=== PATIENT | male | born 1960 | race Caucasian/White ===

== ENCOUNTER 2017-07-19 11:30 | Emergency (ER) | payer BC ==
[~2017-07-19] VITALS: Ht 170.2 cm; Wt 77.2 kg
[~2017-07-19 11:30] MED LIST: EPP3/2 IM
[2017-07-19 11:45] VITALS: TEMP 37.1; Ht 170.2 cm; Wt 77.2 kg
[2017-07-19] MEDS ORDERED: ACETAMINOPHEN 325 MG TAB PO STA (12:16)
[2017-07-19] MEDS ORDERED: SODIUM CHLORIDE 0.9% 1000ML 1,000 ML IV STA (12:16)
[2017-07-19] MEDS ORDERED: ONDANSETRON INJ 2 MG/ML 2 ML VIAL IV STA (12:16)
--- NOTE | 2017-07-19 12:21 | EMERGENCY ROOM VISIT NOTE ---
History Report prepared by Sonja: Shikha Meneses Under the Supervision of: Dr. Renetta Perales M.D. First contact with patient: 11:58 Chief Complaint: GI ASSESSMENT Stated Complaint: PAIN IN STOMACH,FEVER,VOMIT,POS FLU A Nursing Triage Summary: Pt presents with who reports "unable to keep anything to down. Every time I stand up I get weak and get sick to my stomach. My stomach has been burning. I am throwing up." Pt dx on Sat with flu A. History of Present Illness The patient is a 57 year old male who presents to the Emergency Room for a GI assessment. The patient started to feel sick 3 days ago. He had a cough and intermittent fevers. He went to an urgent care and was diagnosed with influenza A. states that his cough has improved but now the patient is feeling nauseated. Pt has been vomiting some mucous. He has been able to drink fluids but is unable to keep any food down. He reports dizziness, generalized body aches, and burning in his stomach. His symptoms worsen with standing up and improve with rest. He reports pain in the left side of his abdomen. The patient rates his pain as a 5/10 in severity. Pt denies diarrhea. Source of History: patient, spouse/significant other Onset: 3 days ago Position: abdomen Symptom Intensity: 5/10 Quality: burning Modifying Factors (Worsening): other (standing) Modifying Factors (Relieving): rest Associated Symptoms: + fevers, + cough, + nausea, + vomiting, + abdominal pain, No diarrhea Note: Pt reports dizziness and generalized body aches. Review of Systems See HPI for pertinent positives & negatives. A total of 10 systems reviewed and were otherwise negative. Past Medical & Surgical Medical Problems: (1) Allergic reaction to bee sting (2) Allergic reaction to bee sting (3) Hypertension (4) Near syncope Family History Heart disease Hypertension Social History Smoking Status: Never Smoker Smokeless Tobacco Use: No Alcohol Use: occasionally Marital Status: Housing Status: lives with significant other Occupation Status: employed Current/Historical Medications Scheduled Hctz/Losartan (Hyzaar 12.5MG/100MG), 1 TAB PO DAILY Hydrochlorothiazide (Hctz), 37.5 MG PO DAILY Ondasetron Odt (Zofran Odt), 4 MG SL Q6H Scheduled PRN Benzonatate (Tessalon Perles), 100 MG PO TID PRN for Cough Allergies Coded Allergies: Latex (Unverified Allergy, Unknown, RASH, 07/19/17) Physical Exam Vital Signs Date Time Temp Pulse Resp B/P (MAP) Pulse Ox O2 Delivery O2 Flow Rate FiO2 07/19/17 14:32 61 16 125/83 96 Room Air 07/19/17 12:51 64 07/19/17 12:36 68 18 153/85 96 Room Air 07/19/17 11:45 37.1 80 18 136/102 96 Room Air Physical Exam Vital signs reviewed. General: Ill-appearing 57 year old male, in no significant distress. HEENT: No scleral icterus, PERRLA, neck supple. Atraumatic. Cardiovascular: Regular rate and rhythm, no extra sounds. Pulmonary: Clear to auscultation bilaterally, normal work of breathing. Abdomen: Soft, nontender, nondistended, positive bowel sounds. Musculoskeletal: Atraumatic, no peripheral edema. Neurologic: Patient awake alert and oriented x 3 Skin: Warm, dry, no rash Medical Decision & Procedures ER Provider Diagnostic Interpretation: Radiology results as stated below per my review and radiologist interpretation: ABDOMEN 2VIEW W/PA CHEST RTN CLINICAL HISTORY: 57 years-old Male presenting with L LQ abd pain, influenza, vomiting. TECHNIQUE: PA view of the chest and supine and upright views of the abdomen were obtained. COMPARISON: None. FINDINGS: Cardiomediastinal silhouette normal. Lungs and pleural spaces clear. Nonobstructive bowel gas pattern. Mild small bowel wall thickening suggested in the left mid abdomen. No pneumoperitoneum, pneumatosis, or portal venous gas. Allowing for bowel gas and stool, no calcifications to suggest nephrolithiasis. Osseous structures normal. IMPRESSION: 1. No acute cardiopulmonary disease. 2. Suggestion of mild small bowel wall thickening in the left mid abdomen which could suggest enteritis. 3. No bowel obstruction or free air. Electronically signed by: Gustavo Clayton M.D. 07/19/2017 1:17 PM Dictated Date/Time: 07/19/2017 1:16 PM ABD/PELVIS IV CONTRAST ONLY CLINICAL HISTORY: 57 years-old Male presenting with L abd pain, + flu, vomiting. TECHNIQUE: Multidetector CT of the abdomen and pelvis was performed after the administration of intravenous contrast. IV contrast: 93 mL of Optiray 320. A dose lowering technique was used consistent with the principles of ALARA (as low as reasonably achievable). COMPARISON: Plain radiograph performed earlier the same day. CT DOSE (mGy.cm): The estimated cumulative dose is 606.11 mGycm. FINDINGS: Medical Office Technician topogram: Unremarkable. Lung bases: Minimal basilar opacities, likely atelectasis. 4 mm solid peripheral/subpleural nodule in the medial basal right lower lobe (series 3 image 31). Additional smaller solid subpleural nodules noted on the left. Coronary artery calcification. Normal heart size. No pericardial or pleural effusion. Liver: Normal morphology. Somewhat irregular hypodense lesion in the right hepatic lobe (series 3 image 68), indeterminate and possibly hemangioma or hepatic cyst.. Patent hepatic vasculature. Biliary: No intrahepatic or extrahepatic biliary ductal dilatation. Normal gallbladder. Pancreas: Normal. Spleen: Normal. Adrenal glands: Normal. Kidneys and ureters: Normal. No hydronephrosis. Bladder: Circumferential bladder wall thickening likely indicating chronic outlet obstruction. Pelvic organs: Prostate enlargement likely secondary to benign prostatic hyperplasia. Bowel: Intramural fat deposition noted in the rectum, nonspecific but can be seen in the setting of chronic inflammation. No infiltration of the perirectal fat or evidence of rectal wall thickening. Remainder of the colon is normal. Appendix normal. No bowel obstruction. No significant small bowel wall thickening or perienteric fat stranding. Intramural deposition of fat is also noted in the distal ileum. Peritoneal cavity: No free fluid or intraperitoneal gas. Lymph nodes: Few prominent but subcentimeter lymph nodes in the portacaval region and harshad hepatis, likely reactive. No pathologically enlarged lymph nodes by CT size criteria. Vasculature: Aorta and IVC patent and normal in caliber. Abdominal wall: Normal. Musculoskeletal: Normal. IMPRESSION: 1. No acute intra-abdominal pathology. 2. Intrarenal fat deposition in the rectum and distal ileum. This is nonspecific and can be seen in the setting of chronic inflammation as well as chronic steroid use, obesity, or after chemotherapy. Correlate clinically. 3. Evidence of chronic bladder obstruction secondary to prostatomegaly. 4. Indeterminate liver lesion, suspected benign hemangioma. In the absence of hepatocellular risk factors or underlying malignancy, no further follow-up is warranted. 5. 4 mm solid pulmonary nodule at the right lower lobe. Additional smaller solid pulmonary nodules in the left lower lobe. Follow-up per Isabelle Society 2017 recommendations below. Please refer to below summary of Fleischner Society 2017 recommendations for follow-up of incidental CT nodules (H Melodie et al. Guidelines for management of incidental pulmonary nodules detected on CT images: From the Fleischner Society 2017. Radiology 2017; 284: 228-243.) SOLID NODULES Single nodule; size < 6 mm * Low risk patients: No routine follow-up * High risk patients: Optional CT at 12 months Single nodule; size 6-8 mm * Low risk patients: CT at 6-12 months, then consider CT at 18-24 months * High risk patients: CT at 6-12 months, then at 18-24 months Single nodule; size > 8 mm * Either low or high risk patients: Considered CT at 3 months, PET/CT, or tissue sampling Multiple nodules; size < 6 mm * Low risk patients: No routine follow up * High risk patients: Optional CT at 12 months Multiple nodules; size 6-8 mm * Low risk patients: CT at 3-6 months, then consider CT at 18-24 months * High risk patients: CT at 3-6 months, then at 18-24 months Multiple nodules; size > 8 mm * Low risk patients: CT at 3-6 months, then consider at 18-24 months * High risk patients: CT at 3-6 months, then at 18-24 months Note: These guidelines apply to incidental nodules. These guidelines do not apply to patients younger than 35 years, immunocompromised patients, or patients with cancer. * Low risk patients: Minimal or absent history of smoking and/or other known risk factors * High risk patients: History of smoking, exposure to other carcinogens, emphysema, fibrosis, upper lobe location, family history of lung cancer, etc. * If a nodule up to 8 mm is partly solid or is ground glass, further follow-up is required after 24 months to exclude possible slow growing adenocarcinoma. SUBSOLID NODULES Single ground-glass nodule * Nodule size < 6 mm: No routine follow-up * Nodule size > or = 6 mm: CT at 6-12 months to confirm persistence, then CT every 2 years until 5 years Single part-solid nodule * Nodule size < 6 mm: No routine follow-up * Nodules size > or = 6 mm: CT at 3-6 months to confirm persistence. If unchanged and solid component remains < 6 mm, annual CT should be performed for 5 years Multiple nodules * Nodule size < 6 mm: CT at 3-6 months. If stable, consider CT at 2 and 4 years. * Nodules size > or = 6 mm: CT at 3-6 months. Subsequent management based on the most suspicious nodule(s) Electronically signed by: Gustavo Clayton M.D. 07/19/2017 2:15 PM Dictated Date/Time: 07/19/2017 2:06 PM Laboratory Results 07/19/17 12:32 Red Blood Count 5.22, Mean Corpuscular Volume 87.5, Mean Corpuscular Hemoglobin 31.8, Mean Corpuscular Hemoglobin Concent 36.3, Mean Platelet Volume 9.9, Neutrophils (%) (Auto) 71.2, Lymphocytes (%) (Auto) 14.5, Monocytes (%) (Auto) 13.9, Eosinophils (%) (Auto) 0.0, Basophils (%) (Auto) 0.2, Neutrophils # (Auto ) 3.83, Lymphocytes # (Auto) 0.78, Monocytes # (Auto) 0.75, Eosinophils # (Auto ) 0.00, Basophils # (Auto) 0.01 07/19/17 12:32 Test 07/19/17 12:32 07/19/17 12:40 White Blood Count 5.38 K/uL (4.8-10.8) Red Blood Count 5.22 M/uL (4.7-6.1) Hemoglobin 16.6 g/dL (14.0-18.0) Hematocrit 45.7 % (42-52) Mean Corpuscular Volume 87.5 fL (80-100) Mean Corpuscular Hemoglobin 31.8 pg (25-34) Mean Corpuscular Hemoglobin Concent 36.3 g/dl (32-36) Platelet Count 258 K/uL (130-400) Mean Platelet Volume 9.9 fL (7.4-10.4) Neutrophils (%) (Auto) 71.2 % Lymphocytes (%) (Auto) 14.5 % Monocytes (%) (Auto) 13.9 % Eosinophils (%) (Auto) 0.0 % Basophils (%) (Auto) 0.2 % Neutrophils # (Auto) 3.83 K/uL (1.4-6.5) Lymphocytes # (Auto) 0.78 K/uL (1.2-3.4) Monocytes # (Auto) 0.75 K/uL (0.11-0.59) Eosinophils # (Auto) 0.00 K/uL (0-0.5) Basophils # (Auto) 0.01 K/uL (0-0.2) RDW Standard Deviation 40.0 fL (36.4-46.3) RDW Coefficient of Variation 12.5 % (11.5-14.5) Immature Granulocyte % (Auto) 0.2 % Immature Granulocyte # (Auto) 0.01 K/uL (0.00-0.02) Anion Gap 7.0 mmol/L (3-11) Est Creatinine Clear Calc Drug Dose 79.3 ml/min Estimated GFR () 101.9 Estimated GFR (Non- 87.9 BUN/Creatinine Ratio 24.5 (10-20) Calcium Level 9.1 mg/dl (8.5-10.1) Total Bilirubin 0.5 mg/dl (0.2-1) Direct Bilirubin 0.1 mg/dl (0-0.2) Aspartate Amino Transf (AST/SGOT) 30 U/L (15-37) Alanine Aminotransferase (ALT/SGPT) 40 U/L (12-78) Alkaline Phosphatase 68 U/L (45-117) Total Protein 8.3 gm/dl (6.4-8.2) Albumin 4.0 gm/dl (3.4-5.0) Lipase 159 U/L (73-393) Urine Color YELLOW Urine Appearance CLEAR (CLEAR) Urine pH 7.0 (4.5-7.5) Urine Specific [place] 1.028 (1.000-1.030) Urine Protein NEG (NEG) Urine Glucose (UA) NEG (NEG) Urine Ketones 1+ (NEG) Urine Occult Blood NEG (NEG) Urine Nitrite NEG (NEG) Urine Bilirubin NEG (NEG) Urine Urobilinogen NEG (NEG) Urine Leukocyte Esterase NEG (NEG) Laboratory results per my review. Medications Administered Medications (Trade) Dose Ordered Sig/Kyara Route Start Time Stop Time Status Last Admin Dose Admin Sodium Chloride 1,000 ml @ 999 mls/hr Q1H1M STAT IV 07/19/17 12:16 07/19/17 13:16 DC 07/19/17 12:35 999 MLS/HR Acetaminophen (Tylenol Tab) 650 mg NOW STAT PO 07/19/17 12:16 07/19/17 12:18 DC 07/19/17 12:35 650 MG Ondansetron HCl (Zofran Inj) 4 mg NOW STAT IV 07/19/17 12:16 07/19/17 12:18 DC 07/19/17 12:35 4 MG ECG Indication: abdominal pain Rate (beats per minute): 66 Rhythm: normal sinus Findings: no acute ischemic change, no ectopy Change: Patient's electrocardiogram interpreted by me. ED Course 1206: Past medical records reviewed. The patient was evaluated in room A10. A complete history and physical examination was performed. 1216: Zofran 4 mg IV, Tylenol 650 mg PO, NSS 1000 ml @ 999 mls/hr IV 1440: I reassessed the patient at this time. He is feeling better and resting comfortably. I discussed the results and treatment plan with the patient. I answered all pertaining questions that he had. He expressed understanding and verbalized agreement. The patient will be discharged home. Medical Decision Differential diagnosis: Etiologies such as appendicitis, diverticulitis, PUD, biliary pathology, UTI, pancreatitis, obstruction, mesenteric ischemia, aortic pathology, infections, inflammatory bowel disease, renal colic, as well as others were entertained. This pt was evaluated and appeared to be in no distress. IV access was obtained and lab work was drawn. Pt was hydrated with NSS and given IV zofran for nausea. PO tylenol was given for pain. ABD XR series is concerning for SB wall thickening. The pt had yet to have a BM. A f/u CT of abd and pelvis was ordered, this study is as above. No acute abnormality. Pt was informed of the CT findings to be evaluated by PCP. Pt was feelings improved and felt well for d /c. He will f/u with PCP this week. Pt was encouraged to maintain a clear liquid diet, zofran as needed. He will return to the ED for worsening of symptoms or any medical concerns. Medication Reconcilliation Current Medication List: was personally reviewed by me Blood Pressure Screening Patient's blood pressure: Normal blood pressure Impression Primary Impression: Nausea and vomiting Additional Impressions: Spasm of abdominal muscles of left side Influenza A Scribe Attestation The scribe's documentation has been prepared under my direction and personally reviewed by me in its entirety. I confirm that the note above accurately reflects all work, treatment, procedures, and medical decision making performed by me. Departure Information Dispostion Home / Self-Care Prescriptions Ondasetron Odt (ZOFRAN ODT) 4 Mg Tab 4 MG SL Q6H for Nausea, #14 TAB Prov: Renetta Perales M.D. 07/19/17 Referrals Sukhjinder Jaramillo D.O. (PCP) Forms HOME CARE DOCUMENTATION FORM, IMPORTANT VISIT INFORMATION Patient Instructions My [facility] Additional Instructions Diagnosis: Influenza A, nausea and vomiting, left-sided abdominal pain Zofran 4 mg ODT every 6 hours as needed for nausea. Drink plenty of clear fluids. Continue your other medications as prescribed. You are found to have several small pulmonary nodules. Please speak with your primary care physician regarding any further evaluation. The CAT scan is concerning for an enlarged prostate. Please take with your PCP regarding this finding as well. Return to the ER for worsening of symptoms or any medical concerns. Problem Qualifiers
[2017-07-19] MEDS ORDERED: HYDR25TA4 PO (12:54)
[2017-07-19] MEDS ORDERED: LOSA100T33 PO (12:54)
[2017-07-19] MEDS ORDERED: BENZ100C84 PO (12:54)
[2017-07-19 13:13] LABS: BASO % 0.2 %; BASO ABS # 0.01 K/uL (0-0.2); HEMATOCRIT 45.7 % (42-52); HEMOGLOBIN 16.6 g/dL (14.0-18.0); IG# 0.01 K/uL (0.00-0.02); LYMPH % 14.5 %; LYMPH ABS # 0.78 K/uL (1.2-3.4); MEAN CELL VOLUME 87.5 fL (80-100); MEAN CORPUSCULAR HEMOGLOBIN 31.8 pg (25-34); MEAN CORPUSCULAR HGB CONC 36.3 g/dl (32-36); MEAN PLATELET VOLUME 9.9 fL (7.4-10.4); MONO % 13.9 %; MONO ABS # 0.75 K/uL (0.11-0.59); NEUT % 71.2 %; NEUT ABS # 3.83 K/uL (1.4-6.5); PLATELET COUNT 258 K/uL (130-400); RED CELL DISTRIBUTION WIDTH CV 12.5 % (11.5-14.5); WHITE BLOOD COUNT 5.38 K/uL (4.8-10.8)
--- NOTE | 2017-07-19 13:19 | DIAGNOSTIC IMAGING REPORT ---
ABDOMEN 2VIEW W/PA CHEST RTN CLINICAL HISTORY: 57 years-old Male presenting with L LQ abd pain, influenza, vomiting. TECHNIQUE: PA view of the chest and supine and upright views of the abdomen were obtained. COMPARISON: None. FINDINGS: Cardiomediastinal silhouette normal. Lungs and pleural spaces clear. Nonobstructive bowel gas pattern. Mild small bowel wall thickening suggested in the left mid abdomen. No pneumoperitoneum, pneumatosis, or portal venous gas. Allowing for bowel gas and stool, no calcifications to suggest nephrolithiasis. Osseous structures normal. IMPRESSION: 1. No acute cardiopulmonary disease. 2. Suggestion of mild small bowel wall thickening in the left mid abdomen which could suggest enteritis. 3. No bowel obstruction or free air. Electronically signed by: Gustavo Clayton M.D. 07/19/2017 1:17 PM Dictated Date/Time: 07/19/2017 1:16 PM
[2017-07-19 13:33] LABS: CALCIUM 9.1 mg/dl (8.5-10.1); CREATININE 0.95 mg/dl (0.60-1.40); POTASSIUM 3.3 mmol/L (3.5-5.1)
[2017-07-19 13:36] LABS: TOTAL PROTEIN 8.3 gm/dl (6.4-8.2)
[2017-07-19] MEDS ORDERED: OPTIRAY 320 IV PRN (14:00)
--- NOTE | 2017-07-19 14:16 | DIAGNOSTIC IMAGING REPORT ---
ABD/PELVIS IV CONTRAST ONLY CLINICAL HISTORY: 57 years-old Male presenting with L abd pain, + flu, vomiting. TECHNIQUE: Multidetector CT of the abdomen and pelvis was performed after the administration of intravenous contrast. IV contrast: 93 mL of Optiray 320. A dose lowering technique was used consistent with the principles of ALARA (as low as reasonably achievable). COMPARISON: Plain radiograph performed earlier the same day. CT DOSE (mGy.cm): The estimated cumulative dose is 606.11 mGycm. FINDINGS: Bunch Maker topogram: Unremarkable. Lung bases: Minimal basilar opacities, likely atelectasis. 4 mm solid peripheral/subpleural nodule in the medial basal right lower lobe (series 3 image 31). Additional smaller solid subpleural nodules noted on the left. Coronary artery calcification. Normal heart size. No pericardial or pleural effusion. Liver: Normal morphology. Somewhat irregular hypodense lesion in the right hepatic lobe (series 3 image 68), indeterminate and possibly hemangioma or hepatic cyst.. Patent hepatic vasculature. Biliary: No intrahepatic or extrahepatic biliary ductal dilatation. Normal gallbladder. Pancreas: Normal. Spleen: Normal. Adrenal glands: Normal. Kidneys and ureters: Normal. No hydronephrosis. Bladder: Circumferential bladder wall thickening likely indicating chronic outlet obstruction. Pelvic organs: Prostate enlargement likely secondary to benign prostatic hyperplasia. Bowel: Intramural fat deposition noted in the rectum, nonspecific but can be seen in the setting of chronic inflammation. No infiltration of the perirectal fat or evidence of rectal wall thickening. Remainder of the colon is normal. Appendix normal. No bowel obstruction. No significant small bowel wall thickening or perienteric fat stranding. Intramural deposition of fat is also noted in the distal ileum. Peritoneal cavity: No free fluid or intraperitoneal gas. Lymph nodes: Few prominent but subcentimeter lymph nodes in the portacaval region and harshad hepatis, likely reactive. No pathologically enlarged lymph nodes by CT size criteria. Vasculature: Aorta and IVC patent and normal in caliber. Abdominal wall: Normal. Musculoskeletal: Normal. IMPRESSION: 1. No acute intra-abdominal pathology. 2. Intrarenal fat deposition in the rectum and distal ileum. This is nonspecific and can be seen in the setting of chronic inflammation as well as chronic steroid use, obesity, or after chemotherapy. Correlate clinically. 3. Evidence of chronic bladder obstruction secondary to prostatomegaly. 4. Indeterminate liver lesion, suspected benign hemangioma. In the absence of hepatocellular risk factors or underlying malignancy, no further follow-up is warranted. 5. 4 mm solid pulmonary nodule at the right lower lobe. Additional smaller solid pulmonary nodules in the left lower lobe. Follow-up per Isabelle Society 2017 recommendations below. Please refer to below summary of Fleischner Society 2017 recommendations for follow-up of incidental CT nodules (H Melodie et al. Guidelines for management of incidental pulmonary nodules detected on CT images: From the Fleischner Society 2017. Radiology 2017; 284: 228-243.) SOLID NODULES Single nodule; size < 6 mm * Low risk patients: No routine follow-up * High risk patients: Optional CT at 12 months Single nodule; size 6-8 mm * Low risk patients: CT at 6-12 months, then consider CT at 18-24 months * High risk patients: CT at 6-12 months, then at 18-24 months Single nodule; size > 8 mm * Either low or high risk patients: Considered CT at 3 months, PET/CT, or tissue sampling Multiple nodules; size < 6 mm * Low risk patients: No routine follow up * High risk patients: Optional CT at 12 months Multiple nodules; size 6-8 mm * Low risk patients: CT at 3-6 months, then consider CT at 18-24 months * High risk patients: CT at 3-6 months, then at 18-24 months Multiple nodules; size > 8 mm * Low risk patients: CT at 3-6 months, then consider at 18-24 months * High risk patients: CT at 3-6 months, then at 18-24 months Note: These guidelines apply to incidental nodules. These guidelines do not apply to patients younger than 35 years, immunocompromised patients, or patients with cancer. * Low risk patients: Minimal or absent history of smoking and/or other known risk factors * High risk patients: History of smoking, exposure to other carcinogens, emphysema, fibrosis, upper lobe location, family history of lung cancer, etc. * If a nodule up to 8 mm is partly solid or is ground glass, further follow-up is required after 24 months to exclude possible slow growing adenocarcinoma. SUBSOLID NODULES Single ground-glass nodule * Nodule size < 6 mm: No routine follow-up * Nodule size > or = 6 mm: CT at 6-12 months to confirm persistence, then CT every 2 years until 5 years Single part-solid nodule * Nodule size < 6 mm: No routine follow-up * Nodules size > or = 6 mm: CT at 3-6 months to confirm persistence. If unchanged and solid component remains < 6 mm, annual CT should be performed for 5 years Multiple nodules * Nodule size < 6 mm: CT at 3-6 months. If stable, consider CT at 2 and 4 years. * Nodules size > or = 6 mm: CT at 3-6 months. Subsequent management based on the most suspicious nodule(s) Electronically signed by: Gustavo Clayton M.D. 07/19/2017 2:15 PM Dictated Date/Time: 07/19/2017 2:06 PM
[2017-07-19 14:32] VITALS: BP 125/83; PULSE 61; O2SAT 96
[2017-07-19] MEDS ORDERED: ONDA4TAB10 SL (14:37)
== END 2017-07-19 15:02 | disposition home or self-care (01) ==
LOC: C.EDB 11:33 → C.EDA 15:02
DX: J10.2 Influenza due to other identified influenza virus with gastrointestinal manifestations (principal); M62.838 Other muscle spasm; I10 Essential (primary) hypertension; Z82.49 Family history of ischemic heart disease and other diseases of the circulatory system; Z79.899 Other long term (current) drug therapy